=== PATIENT | male | born 1980 | race Caucasian/White ===

== ENCOUNTER → 2017-02-28 | Outpatient (CLI) | payer SELFPAY ==
[~2017-02-28] MED LIST: AMOXICILLIN500 MG PO; ANAPROX DS550 MG PO; ATARAX25 MG PO; CLARITIN10 MG PO; CLINDAMYCIN HC300 MG PO; CORTISPORIN 1%-10 M1 OT; FLEXERIL10 MG PO; KEFTAB500 MG PO; NKHM; TRAMADOL HCL50 MG PO; ULTRAM50 MG PO; VICODIN 500 MG-1 TAB PO; VICODIN ES 7501 TAB PO; ZITHROMAX Z PA250 MG PO
== END | disposition home or self-care (01) ==
LOC: RAD 14:41
DX: M54.5 Low back pain (principal)

== ENCOUNTER 2018-01-25 10:22 | Emergency (ER) | payer SELFPAY ==
[~2018-01-25] VITALS: Ht 177.8 cm; Wt 77.1 kg
[2018-01-25] MEDS ORDERED: CLINDAMYCIN HC300 MG PO (10:48)
[2018-01-25] MEDS ORDERED: Motrin,Rufen800 MG PO (10:48)
== END 2018-01-25 10:55 | disposition home or self-care (01) ==
LOC: ED 10:22
DX: K08.89 Other specified disorders of teeth and supporting structures (principal); F17.200 Nicotine dependence, unspecified, uncomplicated; Z88.0 Allergy status to penicillin; Z88.6 Allergy status to analgesic agent

== ENCOUNTER 2019-03-03 13:41 | Emergency (ER) | payer SELFPAY ==
[~2019-03-03] VITALS: Ht 177.8 cm; Wt 81.6 kg
[~2019-03-03 13:41] MED LIST changes: +Motrin,Rufen800 MG PO
[2019-03-03] MEDS ORDERED: CLINDAMYCIN HC300 MG PO (14:27)
[2019-03-03] MEDS ORDERED: NAPROSYN500 MG PO (14:27)
== END 2019-03-03 14:36 | disposition home or self-care (01) ==
LOC: ED 13:41
DX: K04.7 Periapical abscess without sinus (principal); Z88.0 Allergy status to penicillin; Z88.6 Allergy status to analgesic agent

== ENCOUNTER 2021-05-06 09:38 | Emergency (ER) | payer SELFPAY ==
[~2021-05-06] VITALS: Ht 177.8 cm; Wt 81.6 kg
[~2021-05-06 09:38] MED LIST changes: +NAPROSYN500 MG PO
[2021-05-06] MEDS ORDERED: FLONASE ALLERG9.9 ML NAS (15:13)
[2021-05-06] MEDS ORDERED: SEPTDS PO (15:13)
== END 2021-05-06 15:30 | disposition home or self-care (01) ==
LOC: ED 09:38
DX: J32.9 Chronic sinusitis, unspecified (principal)

== ENCOUNTER 2022-10-10 03:41 | Emergency (ER) | payer SELFPAY ==
[~2022-10-10] VITALS: Ht 177.8 cm; Wt 83.9 kg
[~2022-10-10 03:41] MED LIST changes: +FLONASE ALLERG9.9 ML NAS; +SEPTDS PO
[2022-10-10] MEDS ORDERED: CLINDAMYCIN HC300 MG PO (03:59)
[2022-10-10] MEDS ORDERED: OXYCODON-ACETA1 EACH PO (19:06)
[2022-10-10] MEDS ORDERED: OXYCODON-ACETA1 EAC1 PO (19:10)
[2022-10-10] MEDS ORDERED: PERCOCET 5-3251 EACH PO (19:55)
== END 2022-10-10 04:11 | disposition home or self-care (01) ==
LOC: ED 03:41
DX: K02.9 Dental caries, unspecified (principal); Z88.0 Allergy status to penicillin; Z79.2 Long term (current) use of antibiotics; Z79.899 Other long term (current) drug therapy; Z90.89 Acquired absence of other organs

== ENCOUNTER 2022-10-10 17:42 | Emergency (ER) | payer OTHER ==
[~2022-10-10] VITALS: Ht 177.8 cm; Wt 86.2 kg
[2022-10-10] MEDS ORDERED: OXYCODON-ACETA1 EACH PO (19:06)
[2022-10-10] MEDS ORDERED: OXYCODON-ACETA1 EAC1 PO (19:10)
[2022-10-10] MEDS ORDERED: PERCOCET 5-3251 EACH PO (19:55)
== END 2022-10-10 19:19 | disposition home or self-care (01) ==
LOC: ED 17:42
DX: K02.9 Dental caries, unspecified (principal); Z88.0 Allergy status to penicillin; Z79.2 Long term (current) use of antibiotics; Z79.899 Other long term (current) drug therapy; Z90.89 Acquired absence of other organs

== ENCOUNTER 2023-12-10 09:09 | Emergency (ER) | payer OTHER ==
[~2023-12-10] VITALS: Ht 177.8 cm; Wt 88.5 kg
[~2023-12-10 09:09] MED LIST changes: +OXYCODON-ACETA1 EAC1 PO; +OXYCODON-ACETA1 EACH PO; +PERCOCET 5-3251 EACH PO
[2023-12-10] MEDS ORDERED: MELOXICAM15 MG PO (09:47)
[2023-12-10] MEDS ORDERED: TRAMADOL HCL50 MG PO (09:50)
== END 2023-12-10 09:58 | disposition home or self-care (01) ==
LOC: ED 09:09
DX: K04.7 Periapical abscess without sinus (principal); F17.200 Nicotine dependence, unspecified, uncomplicated; Z88.0 Allergy status to penicillin; Z79.2 Long term (current) use of antibiotics; Z79.899 Other long term (current) drug therapy; Z90.89 Acquired absence of other organs